=== PATIENT | male | born 1980 ===

== ENCOUNTER 2017-01-30 07:35 | Observation (INO) | payer BC ==
[2017-01-30] MEDS ORDERED: Sodium Chloride 0.9% 1,000 ML IV ONE ×2 (07:50→10:34)
[2017-01-30] MEDS ORDERED: Morphine 4 MG/ML VIAL ONE ×4 (07:56→10:50)
[2017-01-30] MEDS ORDERED: Sodium Chloride 0.9% 1,000 ML ONE ×2 (07:56→10:50)
--- NOTE | 2017-01-30 08:10 | C.PDOC ---
History Of Present Illness Patient is a 36 y/o M presenting with L sided abdominal pain. Patient reports that last night he began to feel some discomfort like "I had to urinate." He reports that he was able to urinate normally and had no dysuria. He reports that just prior to arrival, while walking to work he had the acute onset of L sided abdominal pain that starts in his L scrotum and radiates into his L lower back. He reports that this has never happened before. Reports nausea and dry heaving. Denies constipation or diarrhea. Denies hx of abdominal surgeries. Time Seen by Provider: 01/30/17 07:43 Chief Complaint (Nursing): Male Genitourinary Past Medical History Vital Signs: Last Vital Signs Temp 97.5 F L 01/30/17 10:21 Pulse 60 01/30/17 10:21 Resp 18 01/30/17 10:21 BP 132/86 01/30/17 10:21 Pulse Ox 99 01/30/17 10:38 - Medical History PMH: No Chronic Diseases Family History: States: No Known Family Hx Review Of Systems Constitutional: Negative for: Fever, Chills, Weakness Cardiovascular: Negative for: Chest Pain, Palpitations, Orthopnea, Edema Respiratory: Negative for: Cough, Shortness of Breath, SOB with Excertion Gastrointestinal: Positive for: Nausea, Vomiting, Abdominal Pain. Negative for : Diarrhea, Constipation Genitourinary: Positive for: Scrotal Pain. Negative for: Dysuria, Frequency, Incontinence, Penile Discharge, Rash, Penile Pain Musculoskeletal: Negative for: Neck Pain Neurological: Negative for: Weakness, Numbness Psych: Negative for: Anxiety Physical Exam - Physical Exam Appears: Other (uncomfortable) Head: Atraumatic, Normacephalic Eye(s): bilateral: Normal Inspection, PERRL, EOMI Neck: Supple Chest: Symmetrical, No Deformity, No Tenderness Cardiovascular: Rhythm Regular Respiratory: Normal Breath Sounds, No Rales, No Rhonchi, No Wheezing Gastrointestinal/Abdominal: Soft, No Tenderness, No Mass, No Distention, Other ( no CVA tenderness) Back: Normal Inspection, No CVA Tenderness Male Genital: Testicular Tenderness (L scrotal tenderness. No swelling. Normal lie. +cremaster reflex b/l), No Testicular Swelling, No Scrotal Swelling Extremity: Normal ROM Neurological/Psych: Oriented x3, Normal Speech Gait: Steady ED Course And Treatment - Laboratory Results Result Diagrams: 01/30/17 08:08 01/30/17 08:08 O2 Sat by Pulse Oximetry: 99 Medical Decision Making Medical Decision Making: Immediately on patient's arrival to ED, nurse called me to patient's bedside due to concern for torsion. Ultrasound was immediately ordered and Samer, ED scribe called ultrasound department to alert them of the order and they said that patient could immediately be taken over. Prior to being transported to ultrasound, patient was given patient medication and IVF started. Patient has scrotal tenderness but no abnormal lie or swelling and has normal cremaster reflex. More likely renal colic but due to acutely tender L scrotum, need to r/o torsion. Differential dx includes but not limited to torsion vs epididymitis vs diverticulitis vs uti vs renal colic. If negative ultrasound, will get CT abd/pelvis without contrast. Pending labs and ua 8:26AM Ultrasound negative for torsion but shows b/l small hydroceles and epididymyal cysts. Patient sent to CT. 9:08AM Patient reports no relief with morphine. Chart review shows patient was seen for same to [facility] in 2014 under Evgeny Tineo [id number]. Patient gave urine sample. Pending CT and ua results. 9:56AM UA shows hematuria, trace leukocytes, 3 wbc and rare bacteria. Ucx sent. Gonorrhea/chlamydia ordered (in case CT negative for stone). 10:34AM CT abdomen/pelvis IMPRESSION: 3 mm calculus at the distal left UVJ with mild proximal hydroureteronephrosis. Additional pain medication and IVF ordered. Flomax ordered. Cipro infusing. 11:33AM Patient has had 16mg morphine and toradol and is still writhing in pain. Will need to transfer to observation for renal colic with uncontrolled pain. There is also concern for infected stone due to positive ua results and concern for obstructing stone with CT results showing hydroureteronephrosis. Cipro infusing. Consult to urology placed. Spoke to Jefe, medicine continuous drier helper who agrees that the patient needs to be observed in hospital. ED OBSERVATION Date of observation admission: 01/30/17 Time of observation admission: 10:37 - Observation admission statement Patient is being placed in observation because:: renal colic with uncontrolled pain - Goals of Observation Goals of observation are:: pain control Disposition - Disposition Disposition: HOSPITALIZED Disposition Time: 10:08 Condition: GOOD Instructions: Hydrocele (ED), Testicle Pain (ED) - Clinical Impression Clinical Impression: Hydrocele, bilateral, Epididymal cyst, Renal calculus, Hydroureteronephrosis
[2017-01-30 08:13] LABS: BASO % 0.4 % (0.0-2.0); EOS # 0.2 K/uL (0.0-0.7); EOS % 2.3 % (0.0-4.0); HEMATOCRIT 45.8 % (35.0-51.0); LYMPH # 2.9 K/uL (1.0-4.3); LYMPH % 37.3 % (20.0-40.0); MEAN CELL VOLUME 92.5 fL (80.0-94.0); MEAN CORPUSCULAR HEMOGLOBIN 30.4 pg (27.0-31.0); MEAN CORPUSCULAR HGB CONC 32.8 g/dL (33.0-37.0); MEAN PLATELET VOLUME 10.3 fL (7.2-11.7); MONO # 0.7 K/uL (0.0-0.8); MONO % 8.4 % (0.0-10.0); NRBC % 0.1 % (0.0-2.0); RED CELL DISTRIBUTION WIDTH 13.2 % (11.5-14.5); WHITE BLOOD COUNT 7.8 K/uL (4.8-10.8)
[2017-01-30 08:28] LABS: CHLORIDE 100 mmol/L (98-107); POTASSIUM 3.9 mmol/L (3.6-5.2); SODIUM 141 mmol/L (132-148)
[2017-01-30 08:30] LABS: BILIRUBIN,TOTAL 0.9 mg/dL (0.2-1.3); GFR AFRICAN-AMERICAN > 60
[2017-01-30 08:31] LABS: ALB/GLOB RATIO 1.4 (1.0-2.1); ALKALINE PHOSPHATASE 73 U/L (38-126); ALT/SGPT 32 U/L (21-72); AST/SGOT 33 U/L (17-59); BLOOD UREA NITROGEN 13 mg/dL (9-20); CALCIUM 9.1 mg/dl (8.6-10.4); CARBON DIOXIDE 27 mmol/L (22-30); GLUCOSE,RANDOM 103 mg/dL (75-110)
[2017-01-30 09:38] LABS: RBC URINE 40 /hpf (0-3); URINE BACTERIA RARE (<OCC); URINE BILIRUBIN NEGATIVE (NEGATIVE); URINE BLOOD 2+ (NEGATIVE); URINE COLOR Yellow (YELLOW); URINE GLUCOSE (UA) NORMAL (Normal); URINE KETONE TRACE mg/dL (NEGATIVE); URINE LEUKOCYTE ESTERASE TRACE Leu/uL (Negative); URINE PROTEIN 1+ mg/dL (NEGATIVE); URINE UROBILINOGEN NORMAL mg/dL (0.2-1.0); WBC URINE 3 /hpf (0-5)
--- NOTE | 2017-01-30 10:07 | US ---
Scrotal ultrasound History: Left scrotal pain. Comparison: None available. Technique: Real-time sonography was performed through the scrotum. Findings: Right testicle: 4.8 x 2.2 x 3.3 centimeters. Normal flow. Homogeneous echotexture. Right epididymis measures 9 x 13 x 11 millimeters. Normal flow. Right epididymal cyst measures 0.1 x 0.2 x 0.2 centimeters. Left testicle: 4.1 x 2.0 x 3.3 centimeters. Normal flow. Homogeneous echotexture. Left epididymis measures 1.0 x 1.0 x 1.1 centimeters. Normal flow. Left epididymal cyst measures 3 x 3 x 3 millimeters. Small bilateral scrotal hydroceles. Impression: Small bilateral scrotal hydroceles. Small bilateral epididymal cysts.
--- NOTE | 2017-01-30 10:25 | CT ---
PROCEDURE: CT Abdomen and Pelvis without Oral or IV contrast. HISTORY: L flank and scrotal pain COMPARISON: None available TECHNIQUE: Contiguous axial images of the abdomen and pelvis. No oral or IV contrast administered. Coronal and Sagittal reformats generated. Radiation dose: Total exam DLP = 1181.81 mGy-cm. This CT exam was performed using one or more of the following dose reduction techniques: Automated exposure control, adjustment of the mA and/or kV according to patient size, and/or use of iterative reconstruction technique. FINDINGS: There is limited evaluation of the solid organs without the administration of IV contrast. LOWER THORAX: No visible consolidation, pleural effusion, or pneumothorax. LIVER: Unremarkable unenhanced appearance. GALLBLADDER AND BILE DUCTS: Unremarkable unenhanced appearance. PANCREAS: Unremarkable unenhanced appearance. SPLEEN: Unremarkable unenhanced appearance. ADRENALS: Unremarkable unenhanced appearance. KIDNEYS AND URETERS: 3 mm calculus at the distal left UVJ with mild proximal hydroureteronephrosis. No right-sided hydronephrosis or obstructing calculus evident. BLADDER: The urinary bladder appears unremarkable. REPRODUCTIVE: Unremarkable. APPENDIX: The appendix appears within normal limits of caliber. No secondary signs of acute appendicitis. BOWEL: The stomach is nondistended. Lack of oral contrast limits evaluation for bowel pathology. The bowel loops appear within normal limits of caliber without evidence of intestinal obstruction. Mild to moderate constipation. PERITONEUM: No significant free fluid. No definite free air. LYMPH NODES: No bulky lymphadenopathy identified. VASCULATURE: Unremarkable. No aortic aneurysm. BONES: No acute osseous abnormality is detected. OTHER FINDINGS: None. IMPRESSION: 3 mm calculus at the distal left UVJ with mild proximal hydroureteronephrosis.
[2017-01-30] MEDS ORDERED: Ciprofloxacin 200mg/100ml D5W 100 ML IVPB STA (10:36)
[2017-01-30] MEDS ORDERED: Ciprofloxacin 400mg/200ml D5W 400 MG/200 ML BAG IVPB STA (10:50)
[2017-01-30] MEDS ORDERED: Ciprofloxacin 400mg/200ml D5W 400 MG/200 ML BAG IVPB ONE (10:50)
[2017-01-30] MEDS: HYDROmorphone 1 mg/ml ISec IVP PRN (14:41)
[2017-01-30] MEDS: Sodium Chloride 0.9% 1,000 ML IV SCH (14:43)
--- NOTE | 2017-01-30 15:56 | CP.PCM.HP ---
History of Present Illness - History of Present Illness History of Present Illness: 36-year-old male patient presenting with left-sided abdominal pain. Patient reports that last night he began to feel some discomfort like "I had to urinate ". He reports that he was able to urinate normally and had no dysuria. He reports that just prior to arrival, while walking to walk he had acute onset of left-sided abdominal pain starting in his left scrotum Present on Admission - Present on Admission Any Indicators Present on Admission: No Past Patient History - Infectious Disease Hx of Infectious Diseases: None - Past Medical History & Family History Past Medical History?: No - Past Social History Smoking Status: Never Smoked - MUSCULOSKELETAL/RHEUMATOLOGICAL Hx Falls: No - PSYCHIATRIC Hx Substance Use: No - SURGICAL HISTORY Hx Surgeries: No - ANESTHESIA Hx Anesthesia: No Meds Home Medications: Home Medication List Medication Instructions Recorded Confirmed Type Tamsulosin [Flomax] 0.4 mg PO DAILY #30 cap 02/01/17 Rx Allergies/Adverse Reactions: Allergies Allergy/AdvReac Type Severity Reaction Status Date / Time pollen extracts Allergy Verified 01/30/17 07:39 Physical Exam - Constitutional Appears: Well - Head Exam Head Exam: ATRAUMATIC, NORMAL INSPECTION, NORMOCEPHALIC - Eye Exam Eye Exam: EOMI, Normal appearance, PERRL Pupil Exam: NORMAL ACCOMODATION, PERRL - ENT Exam ENT Exam: Mucous Membranes Moist, Normal Exam - Neck Exam Neck exam: Positive for: Normal Inspection - Respiratory Exam Respiratory Exam: Decreased Breath Sounds - Cardiovascular Exam Cardiovascular Exam: REGULAR RHYTHM, +S1, +S2 - GI/Abdominal Exam GI & Abdominal Exam: Diminished Bowel Sounds, Soft - Rectal Exam Rectal Exam: Deferred Results - Vital Signs Recent Vital Signs: Last Vital Signs Temp 97.5 F L 01/30/17 10:21 Pulse 60 01/30/17 10:21 Resp 18 01/30/17 10:21 BP 132/86 01/30/17 10:21 Pulse Ox 99 01/30/17 11:59 - Labs Result Diagrams: 02/01/17 14:25 02/01/17 14:25 Assessment & Plan - Assessment and Plan (Free Text) Plan: dialudid lovenox urology avelox protonix ivf mariluz same discharge planning
--- NOTE | 2017-01-30 16:49 | CP.PCM.PN ---
Subjective - Date & Time of Evaluation Date of Evaluation: 01/30/17 Time of Evaluation: 16:47 - Subjective Subjective: 36 year old Hisp male w l renal colic and LLureteral calculi. Suggest Begin Flomax strain urine Keep npo after midnight will procede with ureteroscopy tomorrow if stone fails to pass. Jonatan Objective - Vital Signs/Intake and Output Vital Signs (last 24 hours): Temp Pulse Resp BP Pulse Ox 97.5 F L 60 18 132/86 99 01/30/17 10:21 01/30/17 10:21 01/30/17 10:21 01/30/17 10:21 01/30/17 11:59 Intake and Output: 01/30/17 01/30/17 06:59 18:59 Intake Total 350 Balance 350 - Medications Medications: Current Medications Enoxaparin Sodium (Lovenox) 40 mg SC DAILY [facility] Hydromorphone HCl (Dilaudid) 1 mg IVP Q8H PRN PRN Reason: Pain, severe (8-10) Last Admin: 01/30/17 14:41 Dose: 1 mg Moxifloxacin HCl (Avelox Iv 400mg/250ml Ns) 400 mg in 250 mls @ 167 mls/hr IVPB Q24H [facility] Sodium Chloride (Sodium Chloride 0.9%) 1,000 mls @ 100 mls/hr IV .Q10H [facility] Last Admin: 01/30/17 14:43 Dose: 100 mls/hr Pantoprazole Sodium (Protonix Ec Tab) 40 mg PO DAILY [facility] Tamsulosin HCl (Flomax) 0.4 mg PO DAILY [facility]
[2017-01-30] MEDS: Moxifloxacin IV 400mg/250ml NS 400 MG/250 ML BAG IVPB SCH (17:17)
[2017-01-30] MEDS ORDERED: HYDROmorphone 1 mg/ml ISec IVP STA (17:34)
[2017-01-31] MEDS: Sodium Chloride 0.9% 1,000 ML IV SCH ×4 (00:45→20:35)
[2017-01-31] MEDS: HYDROmorphone 1 mg/ml ISec IVP PRN ×2 (01:45→14:56)
[2017-01-31] MEDS: Enoxaparin 40 mg Syringe SC SCH (09:02)
[2017-01-31] MEDS: Pantoprazole 40 mg EC Tab PO SCH (09:02)
--- NOTE | 2017-01-31 09:11 | CP.PCM.PN ---
Subjective - Date & Time of Evaluation Date of Evaluation: 01/31/17 Time of Evaluation: 10:00 - Subjective Subjective: clinically same Objective - Vital Signs/Intake and Output Vital Signs (last 24 hours): Temp Pulse Resp BP Pulse Ox 98.3 F 77 20 108/71 98 01/31/17 07:16 01/31/17 07:16 01/31/17 07:16 01/31/17 07:16 01/31/17 07:16 Intake and Output: 01/31/17 01/31/17 06:59 18:59 Intake Total 2400 Output Total 700 Balance 1700 - Medications Medications: Current Medications Enoxaparin Sodium (Lovenox) 40 mg SC DAILY [facility] Last Admin: 01/31/17 09:02 Dose: Not Given Hydromorphone HCl (Dilaudid) 1 mg IVP Q8H PRN PRN Reason: Pain, severe (8-10) Last Admin: 01/31/17 01:45 Dose: 1 mg Moxifloxacin HCl (Avelox Iv 400mg/250ml Ns) 400 mg in 250 mls @ 167 mls/hr IVPB Q24H [facility] Last Admin: 01/30/17 17:17 Dose: 167 mls/hr Sodium Chloride (Sodium Chloride 0.9%) 1,000 mls @ 100 mls/hr IV .Q10H [facility] Last Admin: 01/31/17 04:30 Dose: 100 mls/hr Pantoprazole Sodium (Protonix Ec Tab) 40 mg PO DAILY [facility] Last Admin: 01/31/17 09:02 Dose: Not Given Tamsulosin HCl (Flomax) 0.4 mg PO DAILY [facility] Last Admin: 01/31/17 09:02 Dose: Not Given - Constitutional Appears: Well - Head Exam Head Exam: ATRAUMATIC, NORMAL INSPECTION, NORMOCEPHALIC - Eye Exam Eye Exam: EOMI, Normal appearance, PERRL Pupil Exam: NORMAL ACCOMODATION, PERRL - ENT Exam ENT Exam: Mucous Membranes Moist, Normal Exam - Neck Exam Neck Exam: Full ROM, Normal Inspection. absent: Lymphadenopathy - Respiratory Exam Respiratory Exam: Decreased Breath Sounds - Cardiovascular Exam Cardiovascular Exam: REGULAR RHYTHM, +S1, +S2 - GI/Abdominal Exam GI & Abdominal Exam: Soft, Diminished Bowel Sounds - Rectal Exam Rectal Exam: Deferred Assessment and Plan - Assessment and Plan (Free Text) Plan: Follow-up with Dr. Cheung urine culture postive for grm postive cocci id pending on avelox mariluz same will give vnco if needed or call id prn
[2017-01-31] MEDS ORDERED: NS IVPB ONE (09:53)
[2017-01-31] MEDS ORDERED: GENTAMICIN IVPB ONE (09:53)
[2017-01-31] MEDS ORDERED: Ciprofloxacin 400mg/200ml D5W 0 MG/0 ML BAG IVPB ONE (10:11)
[2017-01-31] MEDS ORDERED: Lidocaine 2% Jelly (Uro-Jet) ONE (10:11)
[2017-01-31] MEDS ORDERED: Iohexol 240 (50 ml) ONE (10:11)
[2017-01-31] MEDS ORDERED: Propofol 10 mg/ml Inj (20 ML) ONE (10:30)
[2017-01-31] MEDS ORDERED: Lidocaine Hydrochloride 5 ML INJ ONE (10:31)
[2017-01-31] MEDS ORDERED: Lactated Ringer's 1,000 ML IV ONE ×2 (10:34→11:56)
[2017-01-31] MEDS ORDERED: Midazolam 2 MG/2 ML VIAL ONE (10:35)
[2017-01-31] MEDS: Gentamicin 80 mg in 0.9% NS 80 MG/100 ML BAG IVPB ONE ×2 (10:55→10:57)
[2017-01-31] MEDS ORDERED: Morphine 4 MG/ML VIAL ONE ×2 (10:57→11:05)
--- NOTE | 2017-01-31 11:26 | PCM.SURG1 ---
Surgeon's Initial Post Op Note - Surgeon's Notes Surgeon: Jonatan Supervisor Stave Finishing: brittany Type of Anesthesia: General LMA Anesthesia Administered By: staff Pre-Operative Diagnosis: Left lower ureteral calculi/colic Operative Findings: Left lower ureteral calculi Post-Operative Diagnosis: same Operation Performed: Ureteroscopy/stone removal/stent insertion Specimen/Specimens Removed: stone Estimated Blood Loss: EBL {In ML}: 0 Blood Products Given: N/A Drains Used: No Drains Post-Op Condition: Good Date of Surgery/Procedure: 01/31/17 Time of Surgery/Procedure: 11:27
--- NOTE | 2017-01-31 11:48 | RAD ---
PROCEDURE: Fluoroscopy up to 1 hr. HISTORY: UROLITHIASIS COMPARISON: None TECHNIQUE: Standard FINDINGS: Submitted images from the current procedure: 3.0 IMPRESSION: Less than 1 hr fluoroscopic time utilized during performance of the procedure.
--- NOTE | 2017-01-31 12:24 | OP ---
PROCEDURE DATE: 01/31/2017 PREOPERATIVE DIAGNOSIS: Left lower ureteral calculi. POSTOPERATIVE DIAGNOSIS: Left lower ureteral calculi. PROCEDURE: Ureteroscopy and stone removal. FINDINGS: Lower ureteral calculi. DESCRIPTION OF PROCEDURE: The patient was draped and prepped in the usual manner. A cystoscope, a # 21 Storz panendoscope, the pendulous membrane and prostatic urethra were normal. The bladder was ent ered atraumatically. There was no evidence of urothelial tumor or stones. The left ureteral orifice was cannulized with an 0.038 guidewire and this was passed up and manipulated past the stone into th e renal pelvis. The scope was passed out and the ureteroscope was inserted and passed into the bladd er. The left ureteral orifice was localized and a second wire was placed in the orifice and the scop e was passed into the intramural tunnel after hydrodilatation. A stone was seen at the superior port ion of the intramural tunnel. This was manipulated with the guidewire removed. The patient tolerate d this procedure very well and a double-J stent was passed over the original guidewire after removing the ureteroscope and positioned properly under fluoroscopic and visual control. The patient tolerat ed the procedure well. He was advised he has a stent. The attending physician was also advised. He is instructed to follow up in our office in 1 week for arrangement of stent removal. Jose Carlos Cheung MD cc: [phone] TT: 01/31/2017 12:23:42 smita
--- NOTE | 2017-01-31 12:26 | CON ---
DATE: 01/30/2017 CHIEF COMPLAINT: Left flank pain. HISTORY OF PRESENT ILLNESS: The patient was admitted to the [facility] with severe left flank p ain, nauseousness. He was worked up by the medical staff and found to have a left lower ureteral jessie culus. The patient denies any history of calculi in the past. He says the pain began approximately 24-48 hours prior to coming to the hospital and has been severe and unremitting. There is no family history of renal calculi. Review of further history is noncontributory. REVIEW OF SYSTEMS: RESPIRATORY: The patient has no respiratory complaints. No shortness of breath. No wheezing. GASTROINTESTINAL: The patient has no vomiting, no change in bowel habits. He is nauseous. PULMONARY: The patient has no shortness of breath or wheezing. CARDIAC: The patient has no chest pain or palpitations. ORTHOPEDIC: The patient has no history of orthopedic injury or orthopedic surgery. He has no histor y of joint disease or fracture. Full range of motion in all extremities. NEUROLOGIC: The patient has no history of tremors. He has no history of seizure. He has no history of neurological disease. SOCIAL HISTORY: The patient is unmarried. He is a nonsmoker and only occasional drinker. He does n ot use any illicit drugs. PHYSICAL EXAMINATION: VITAL SIGNS: The patient is afebrile. Vital signs within normal limits. HEAD, EARS, EYES, NOSE, AND THROAT: Within normal limits. NECK: Supple. There are no bruits, nodes, or masses. CHEST: Clear bilaterally. There are no rales or rhonchi. ABDOMEN: Soft, nontender. There is no mass or organomegaly. There is left CVA tenderness. GENITOURINARY: Testicles, epididymis, and cord are normal. Penis is normal. EXTREMITIES: Normal. VASCULAR AND NEUROLOGIC: Normal. I have also reviewed the patient's CAT scan of the abdomen and pelvis and his laboratory data. Based on the above findings, there is a left ureteral calculus, possibly 2 and the patient has signif icant renal colic. We have asked Dr. Pastrana to start the patient on Flomax. He will strain his urine . If he fails to pass the stone, he will undergo ureteroscopy and stone removal tomorrow and inserti on of stent. The patient is aware of the risks and complications of this procedure and has consented to the procedure. Jose Carlos Cheung MD cc: [phone] TT: 01/31/2017 12:25:46 Confirmation # [id number] Dictation # [id number] tn
--- NOTE | 2017-01-31 13:09 | RAD ---
HISTORY: UROLITHIASIS COMPARISON: January 30, 2017. CT abdomen and pelvis. Summary of findings on the comparison examination: 3 mm calculus distal left UVJ. FINDINGS: BOWEL: Normal. No obstruction. No free air. Constipation without fecal impaction or obstruction. BONES: Normal. OTHER FINDINGS: Double-J stent catheter on the left identified. Proximal aspect is uncoiled. No visible renal or ureteral calculi identified. IMPRESSION: No active disease.
[2017-01-31 13:53] LABS: BASO % 0.6 % (0.0-2.0); EOS # 0.1 K/uL (0.0-0.7); EOS % 1.1 % (0.0-4.0); HEMATOCRIT 40.2 % (35.0-51.0); LYMPH # 1.6 K/uL (1.0-4.3); LYMPH % 24.1 % (20.0-40.0); MEAN CELL VOLUME 92.2 fL (80.0-94.0); MEAN CORPUSCULAR HEMOGLOBIN 30.4 pg (27.0-31.0); MEAN CORPUSCULAR HGB CONC 32.9 g/dL (33.0-37.0); MEAN PLATELET VOLUME 10.1 fL (7.2-11.7); MONO # 0.6 K/uL (0.0-0.8); MONO % 9.4 % (0.0-10.0); RED CELL DISTRIBUTION WIDTH 13.2 % (11.5-14.5); WHITE BLOOD COUNT 6.7 K/uL (4.8-10.8)
[2017-01-31 14:23] LABS: SODIUM 139 mmol/L (132-148)
[2017-01-31 14:25] LABS: BILIRUBIN,TOTAL 0.7 mg/dL (0.2-1.3); GFR AFRICAN-AMERICAN > 60
[2017-01-31 14:26] LABS: ALKALINE PHOSPHATASE 59 U/L (38-126); ALT/SGPT 25 U/L (21-72); AST/SGOT 22 U/L (17-59); BLOOD UREA NITROGEN 8 mg/dL (9-20); CARBON DIOXIDE 29 mmol/L (22-30); GLUCOSE,RANDOM 88 mg/dL (75-110); TOTAL PROTEIN 6.1 g/dL (6.3-8.3)
[2017-01-31 14:27] LABS: CALCIUM 7.8 mg/dl (8.6-10.4)
[2017-01-31 14:34] LABS: ALB/GLOB RATIO 1.3 (1.0-2.1)
[2017-01-31 14:58] LABS: CHLORIDE 99 mmol/L (98-107)
[2017-01-31 16:37] VITALS: RESP 20
[2017-01-31] MEDS: Moxifloxacin IV 400mg/250ml NS 400 MG/250 ML BAG IVPB SCH (18:17)
[2017-02-01] MEDS: HYDROmorphone 1 mg/ml ISec IVP PRN ×2 (00:55→23:49)
[2017-02-01] MEDS: Sodium Chloride 0.9% 1,000 ML IV SCH ×3 (03:00→16:45)
[2017-02-01] MEDS: Pantoprazole 40 mg EC Tab PO SCH (10:42)
[2017-02-01] MEDS: Enoxaparin 40 mg Syringe SC SCH (10:42)
--- NOTE | 2017-02-01 11:46 | CP.PCM.PN ---
Subjective - Date & Time of Evaluation Date of Evaluation: 02/01/17 Time of Evaluation: 10:00 - Subjective Subjective: clinically same Objective - Vital Signs/Intake and Output Vital Signs (last 24 hours): Temp Pulse Resp BP Pulse Ox 98.3 F 73 20 115/80 98 02/01/17 08:55 02/01/17 08:55 02/01/17 08:55 02/01/17 08:55 02/01/17 08:55 Intake and Output: 02/01/17 02/01/17 06:59 18:59 Intake Total 2320 Output Total 1550 Balance 770 - Medications Medications: Current Medications Enoxaparin Sodium (Lovenox) 40 mg SC DAILY [facility] Last Admin: 02/01/17 10:42 Dose: 40 mg Hydromorphone HCl (Dilaudid) 1 mg IVP Q8H PRN PRN Reason: Pain, severe (8-10) Last Admin: 02/01/17 00:55 Dose: 1 mg Moxifloxacin HCl (Avelox Iv 400mg/250ml Ns) 400 mg in 250 mls @ 167 mls/hr IVPB Q24H [facility] Last Admin: 01/31/17 18:17 Dose: 167 mls/hr Sodium Chloride (Sodium Chloride 0.9%) 1,000 mls @ 100 mls/hr IV .Q10H [facility] Last Admin: 02/01/17 06:14 Dose: Not Given Ketorolac Tromethamine (Toradol) 30 mg IVP ONCE PRN PRN Reason: Pain, moderate (4-7) Ondansetron HCl (Zofran Inj) 4 mg IVP Q6H PRN PRN Reason: Nausea/Vomiting Last Admin: 01/31/17 16:35 Dose: 4 mg Pantoprazole Sodium (Protonix Ec Tab) 40 mg PO DAILY [facility] Last Admin: 02/01/17 10:42 Dose: 40 mg Tamsulosin HCl (Flomax) 0.4 mg PO DAILY [facility] Last Admin: 02/01/17 10:42 Dose: 0.4 mg - Labs Labs: 01/31/17 13:45 01/31/17 13:45 - Constitutional Appears: Well - Head Exam Head Exam: ATRAUMATIC, NORMAL INSPECTION, NORMOCEPHALIC - Eye Exam Eye Exam: EOMI, Normal appearance, PERRL Pupil Exam: NORMAL ACCOMODATION, PERRL - ENT Exam ENT Exam: Mucous Membranes Moist, Normal Exam - Neck Exam Neck Exam: Full ROM, Normal Inspection. absent: Lymphadenopathy - Respiratory Exam Respiratory Exam: Decreased Breath Sounds - Cardiovascular Exam Cardiovascular Exam: REGULAR RHYTHM, +S1, +S2 - GI/Abdominal Exam GI & Abdominal Exam: Soft, Diminished Bowel Sounds - Rectal Exam Rectal Exam: Deferred Assessment and Plan - Assessment and Plan (Free Text) Plan: urine culture postive for grm postive cocci id pending on avelox mariluz same will give vnco if needed or call id prn followup with
[2017-02-01 14:34] LABS: BASO # 0.1 K/uL (0.0-0.2); BASO % 0.8 % (0.0-2.0); EOS # 0.1 K/uL (0.0-0.7); EOS % 1.6 % (0.0-4.0); HEMATOCRIT 40.8 % (35.0-51.0); LYMPH # 1.8 K/uL (1.0-4.3); LYMPH % 25.2 % (20.0-40.0); MEAN CELL VOLUME 92.1 fL (80.0-94.0); MEAN CORPUSCULAR HEMOGLOBIN 29.9 pg (27.0-31.0); MEAN CORPUSCULAR HGB CONC 32.5 g/dL (33.0-37.0); MEAN PLATELET VOLUME 10.4 fL (7.2-11.7); MONO # 0.6 K/uL (0.0-0.8); MONO % 8.8 % (0.0-10.0); RED CELL DISTRIBUTION WIDTH 13.3 % (11.5-14.5); WHITE BLOOD COUNT 7.3 K/uL (4.8-10.8)
[2017-02-01 14:56] LABS: CHLORIDE 98 mmol/L (98-107); POTASSIUM 3.8 mmol/L (3.6-5.2); SODIUM 140 mmol/L (132-148)
[2017-02-01 14:59] LABS: CARBON DIOXIDE 28 mmol/L (22-30); GFR AFRICAN-AMERICAN > 60
[2017-02-01 15:00] LABS: BLOOD UREA NITROGEN 9 mg/dL (9-20); CALCIUM 8.7 mg/dl (8.6-10.4); GLUCOSE,RANDOM 79 mg/dL (75-110)
[2017-02-01] MEDS: Moxifloxacin IV 400mg/250ml NS 400 MG/250 ML BAG IVPB SCH (18:06)
[2017-02-01 23:30] VITALS: PULSE 71; O2SAT 98
[2017-02-02] MEDS: Sodium Chloride 0.9% 1,000 ML IV SCH (02:05)
[2017-02-02 09:09] VITALS: BP 116/76; TEMP 97.7
[2017-02-02] MEDS: Pantoprazole 40 mg EC Tab PO SCH (10:33)
[2017-02-02] MEDS: Enoxaparin 40 mg Syringe SC SCH (10:33)
--- NOTE | 2017-02-02 12:43 | CP.PCM.PN ---
Subjective - Date & Time of Evaluation Date of Evaluation: 02/02/17 Time of Evaluation: 09:40 - Subjective Subjective: clinically same Objective - Vital Signs/Intake and Output Vital Signs (last 24 hours): Temp Pulse Resp BP Pulse Ox 97.7 F 71 20 116/76 98 02/02/17 07:00 02/02/17 07:00 02/02/17 07:00 02/02/17 07:00 02/02/17 07:00 Intake and Output: 02/02/17 02/02/17 06:59 18:59 Intake Total 900 500 Balance 900 500 - Medications Medications: Current Medications Enoxaparin Sodium (Lovenox) [address] [facility] Last Admin: 02/02/17 10:33 Dose: 40 mg Hydromorphone HCl (Dilaudid) 1 mg IVP Q8H PRN PRN Reason: Pain, severe (8-10) Last Admin: 02/01/17 23:49 Dose: 1 mg Moxifloxacin HCl (Avelox Iv 400mg/250ml Ns) 400 mg in 250 mls @ 167 mls/hr IVPB Q24H [facility] Last Admin: 02/01/17 18:06 Dose: 167 mls/hr Sodium Chloride (Sodium Chloride 0.9%) 1,000 mls @ 100 mls/hr IV .Q10H [facility] Last Admin: 02/02/17 02:05 Dose: Not Given Ondansetron HCl (Zofran Inj) 4 mg IVP Q6H PRN PRN Reason: Nausea/Vomiting Last Admin: 01/31/17 16:35 Dose: 4 mg Pantoprazole Sodium (Protonix Ec Tab) [address] [facility] Last Admin: 02/02/17 10:33 Dose: 40 mg Tamsulosin HCl (Flomax) 0.[address] [facility] Last Admin: 02/02/17 10:33 Dose: 0.4 mg - Labs Labs: 02/01/17 14:25 02/01/17 14:25 - Constitutional Appears: Well - Head Exam Head Exam: ATRAUMATIC, NORMAL INSPECTION, NORMOCEPHALIC - Eye Exam Eye Exam: EOMI, Normal appearance, PERRL Pupil Exam: NORMAL ACCOMODATION, PERRL - ENT Exam ENT Exam: Mucous Membranes Moist, Normal Exam - Neck Exam Neck Exam: Full ROM, Normal Inspection. absent: Lymphadenopathy - Respiratory Exam Respiratory Exam: Decreased Breath Sounds - Cardiovascular Exam Cardiovascular Exam: REGULAR RHYTHM, +S1, +S2 - GI/Abdominal Exam GI & Abdominal Exam: Soft, Diminished Bowel Sounds - Rectal Exam Rectal Exam: Deferred Assessment and Plan - Assessment and Plan (Free Text) Plan: s/p ureteroscopy and stone removal and stent plcemtn discharge if ok wth dr. harden a pt hs hematuria mariluz current med pt is on flomax
== END 2017-02-02 02:55 | disposition home or self-care (01) ==
LOC: C.ER 07:35 → C.9OBSV 10:38 → C.9E 11:36 → C.3T 12:04
PROVIDERS: ADMIT Internal Medicine Nephrology; ATTEND Internal Medicine Nephrology
DX: N13.2 Hydronephrosis with renal and ureteral calculous obstruction (principal); R31.9 Hematuria, unspecified; N43.3 Hydrocele, unspecified; N50.3 Cyst of epididymis
CPT/HCPCS: 36415; 52352; 74020; 74176; 76000; 76870; 80048; 80053; 81001; 82365; 83690; 85025; 87086; 87491; 87591; 88300; 96361; 96365; 96366; 96367; 96372; 96375; 96376; 99285; C1769; C2617; G0378; J0744; J1170; J1580; J1650; J1885; J2270; J2280; J2405; J7040; J7120